=== PATIENT | male | born 1975 | race African-American/Black ===

== ENCOUNTER 2024-03-05 23:41 | Emergency (ER) | payer OTHER ==
[~2024-03-05] VITALS: Ht 185.4 cm; Wt 88.0 kg
[2024-03-05 23:55] VITALS: BP 119/80; PULSE 60; RESP 18; TEMP 98.1; O2SAT 97
[2024-03-06] MEDS ORDERED: CIPR2.5D20 RIGHTEYE (01:27)
== END 2024-03-06 01:53 | disposition home or self-care (01) ==
LOC: ER 23:59
DX: H10.89 Other conjunctivitis (principal)
CPT/HCPCS: 99283

== ENCOUNTER 2024-03-09 11:12 | Emergency (ER) | payer OTHER ==
[~2024-03-09] VITALS: Ht 180.3 cm; Wt 95.0 kg
[~2024-03-09 11:12] MED LIST: CIPR2.5D20 RIGHTEYE
[2024-03-09 11:19] VITALS: BP 134/90; PULSE 82; RESP 18; TEMP 98.5; O2SAT 98
[2024-03-09] MEDS: FLUORESCEIN SODIUM 1MG/STRIP RIGHTEYE ONE (14:45)
[2024-03-09] MEDS: TETRACAINE 0.5% OPHTH DROPS 4ML RIGHTEYE ONE (14:55)
[2024-03-09] MEDS ORDERED: OLOP2.5D12 RIGHTEYE (17:42)
== END 2024-03-09 18:00 | disposition home or self-care (01) ==
LOC: ER 11:12
DX: H57.89 Other specified disorders of eye and adnexa (principal)
CPT/HCPCS: 99282